=== PATIENT | female | born 1950 | race African-American/Black ===

== ENCOUNTER 2018-05-25 19:30 | Inpatient (IN) | END 2018-06-05 13:37 | DRG 562 ==

== ENCOUNTER 2019-05-21 08:32 | Inpatient (IN) | payer MEDICARE, OTHER ==
[~2019-05-21] VITALS: Ht 160 cm; Wt 105.5 kg
[2019-05-21] VITALS (23 sets, daily range): BP systolic 121–142; BP diastolic 53–107; PULSE 39–62; RESP 14–22; Ht 160 cm; Wt 105.5 kg
[~2019-05-21 08:32] MED LIST: ALBU18HF INHALATION; ARIP15TA3 PO; ASPI-817 PO; ATOR20TA38 PO; ATOR20TA65 PO; ATROPINE 1 MG/10 ML SYRINGE ONE; BENZ0.5T41 PO; CA CHLORIDE 10% 10 ML SYRINGE ONE; CHOL100062 PO; CLON0.1T14 PO; CLON0.3T PO; DILT180C72 PO; DOCU-144 PO; DOXA1TAB38 PO; DULO30CA48 PO; EPINEPHrine 0.1 MG/ML SYG ONE; ETOMIDATE 20 MG INJ ONE; FLUC100T PO; FLUT1BLS INH; FURO40TA4 PO; GABA300C16 PO; HYDR-3601 PO; HYDR-3672 PO; IBUP-1542 PO; ISOS20TA19 PO; ISOS60TA PO; Insulin Glargine SC; LANT3I SC; LISI40TA3 PO; METF100010 PO; METO-448 PO; MIRT30TA5 PO; MONT10TA24 PO; NA BICARBONATE 8.4% 50 ML SYG ONE; NIFE60TA18 PO; NIFE60TA2 PO; NOVO3I SC; OXYC30TA3 PO; PANT40TA4 PO; ROCURONIUM 50 MG INJ ONE; SEVE800T7 PO; SIMV40TA2 PO; TRAZ150T65 PO
[2019-05-21] MEDS ORDERED: CEFEPIME 2GM/50 ML (PMX) 50 ML IVPB STA (08:39)
[2019-05-21] MEDS ORDERED: SOD CHLORIDE 0.9% 1,000 ML IV STA (08:39)
[2019-05-21] MEDS ORDERED: DOPamine-D5W 1.6 MG/ML 250 ML IV STA (08:44)
[2019-05-21] MEDS ORDERED: ATROPINE 0.4 MG INJ IV ONE (09:00)
[2019-05-21] MEDS ORDERED: CA CHLORIDE 10% 10 ML SYRINGE IV ONE (09:00)
[2019-05-21] MEDS ORDERED: NA BICARBONATE 8.4% 50 ML SYG IV ONE ×2 (09:00→16:00)
[2019-05-21] MEDS ORDERED: VANCOMYCIN 1 GM (PMX) 250 ML IVPB ONE (09:00)
[2019-05-21] MEDS ORDERED: ALBUTEROL 0.5% (NEB) 2.5 MG/0.5 ML AMP INH STA (09:03)
[2019-05-21] MEDS ORDERED: SODIUM POLYSTYRENE 15 GM KIT (POWDER + SORBITOL) PO STA (09:03)
[2019-05-21] MEDS ORDERED: MIDAZOLAM 100 MG in SOD CHLORIDE 0.9% 80 ML IV STA ×2 (09:45→13:49)
[2019-05-21] MEDS ORDERED: SODIUM CHLORIDE 0.9% 1L BAG IV* STA (09:45)
[2019-05-21] MEDS ORDERED: NA POLYST SULFON 15 GM/60 ML BTL PO STA (10:35)
[2019-05-21] MEDS ORDERED: EPINEPHrine 0.1 MG/ML SYG ONE (11:38)
[2019-05-21] MEDS ORDERED: CEFEPIME 1GM/50 ML (PMX) 50 ML IVPB ONE (13:00)
[2019-05-21] MEDS ORDERED: FUROSEMIDE 40 MG INJ IV ONE (13:00)
[2019-05-21] MEDS ORDERED: VANCOMYCIN IV PER PHARMACY XX SCH (13:00)
[2019-05-21] MEDS ORDERED: GABAPENTIN 300 MG CAP PO SCH (13:00)
[2019-05-21] MEDS ORDERED: CALCIUM GLUCONATE 10% 1 GM in DEXTROSE 5% 100 ML IVPB ONE (13:00)
[2019-05-21] MEDS ORDERED: FENTAnyl 1,000 MCG in SOD CHLORIDE 0.9% 80 ML IV ONE (13:49)
[2019-05-21] MEDS ORDERED: VANCOMYCIN 1 GM in 250 ML IVPB ONE (14:00)
[2019-05-21] MEDS ORDERED: DEXTROSE 50% 50 ML SYRINGE IV PRN ×5 (14:00→19:30)
[2019-05-21] MEDS ORDERED: GLUCOSE GEL 15 GRAM TUBE PO PRN ×2 (14:00)
[2019-05-21] MEDS ORDERED: GLUCOSE GEL 15 GRAM TUBE BUCCAL PRN (14:00)
[2019-05-21] MEDS ORDERED: GLUCAGON 1 MG INJ IM PRN (14:00)
[2019-05-21] MEDS: SEVELAMER CARBONATE 0.8 GM PKT PO SCH ×2 (14:20→22:11)
[2019-05-21] MEDS ORDERED: DOPamine-D5W 1.6 MG/ML 250 ML IV SCH (16:30)
[2019-05-21] MEDS ORDERED: INSULIN ASPART [NOVOLOG] 3 ML PEN SC SCH (17:35)
[2019-05-21] MEDS ORDERED: BUMETANIDE 12 MG in DEXTROSE 5% 72 ML IV ONE (18:00)
[2019-05-21] MEDS: SODIUM BICARBONATE (IV ADD) 100 MEQ in DEXTROSE 5% 1,000 ML IV SCH (18:21)
[2019-05-21] MEDS ORDERED: CALCIUM GLUCONATE 10% 2 GM in DEXTROSE 5% 100 ML IVPB ONE (18:30)
[2019-05-21] MEDS ORDERED: INSULIN REGULAR, HUMAN 100 UNIT/1 ML 3ML VIAL IVP STA (18:45)
[2019-05-21] MEDS ORDERED: ADJUSTMENT OF INSULIN INFUSION RATE (DKA PROTOCOL) XX SCH (19:30)
[2019-05-21] MEDS: ACCU-CHEK XX SCH ×5 (19:30→23:30)
[2019-05-21] MEDS ORDERED: INSULIN REGULAR, HUMAN 100 UNIT in SOD CHLORIDE 0.9% 100 ML IV SCH ×2 (19:30)
[2019-05-21] MEDS ORDERED: INSULIN REGULAR, HUMAN 100 UNIT in SOD CHLORIDE 0.9% 99 ML IV SCH ×2 (19:30)
[2019-05-21] MEDS ORDERED: DEXTROSE 50% 25 ML IV PRN (19:30)
[2019-05-21] MEDS ORDERED: DEXTROSE 50% 50 ML IV PRN (19:30)
[2019-05-21] MEDS: INSULIN HUMAN REGULAR 100 UNIT in SOD CHLORIDE 0.9% 99 ML IV SCH (20:25)
[2019-05-21] MEDS ORDERED: LACTOBACILLUS RHAMNOSUS CAP PO SCH (21:00)
[2019-05-21] MEDS ORDERED: traZODone 50 MG TAB PO SCH (21:00)
[2019-05-21] MEDS ORDERED: ATORVASTATIN 20 MG TAB PO SCH (21:00)
[2019-05-21] MEDS ORDERED: METOPROLOL 25 MG TAB PO SCH (21:00)
[2019-05-21] MEDS: NIFEdipine (XL) 60 MG TAB PO SCH (21:00)
[2019-05-21] MEDS ORDERED: MONTELUKAST 10 MG TAB PO SCH (21:00)
[2019-05-21] MEDS ORDERED: DOCUSATE SODIUM 100 MG CAP PO SCH (21:00)
[2019-05-21] MEDS ORDERED: HEPARIN 1000 UNITS/ML 10 ML INJ CATHETER ONE ×3 (22:00→23:30)
[2019-05-22] VITALS (84 sets, daily range): BP systolic 132–163; BP diastolic 62–77; PULSE 62–92; RESP 14–22
[2019-05-22] MEDS: ACCU-CHEK XX SCH ×23 (00:30→22:30)
[2019-05-22] MEDS ORDERED: ACCU-CHEK XX SCH (02:00)
[2019-05-22] MEDS: MIDAZOLAM 100 MG in SOD CHLORIDE 0.9% 80 ML IV SCH (03:08)
[2019-05-22] MEDS: INSULIN HUMAN REGULAR 100 UNIT in SOD CHLORIDE 0.9% 99 ML IV SCH (03:09)
[2019-05-22] MEDS: SODIUM BICARBONATE (IV ADD) 100 MEQ in DEXTROSE 5% 1,000 ML IV SCH (05:11)
[2019-05-22] MEDS: PANTOPRAZOLE 40 MG INJ IV SCH (05:12)
[2019-05-22] MEDS: ISOSORBIDE MONONITRATE(SR)60 MG TAB PO SCH (09:00)
[2019-05-22] MEDS ORDERED: CHOLECALCIFEROL 1,000 UNIT TAB PO SCH (09:00)
[2019-05-22] MEDS ORDERED: BUMETANIDE 12 MG in DEXTROSE 5% 72 ML IV ONE (09:00)
[2019-05-22] MEDS: NIFEdipine (XL) 60 MG TAB PO SCH ×2 (09:00→21:11)
[2019-05-22] MEDS: SEVELAMER CARBONATE 0.8 GM PKT NGT SCH ×3 (09:25→21:10)
[2019-05-22] MEDS: LACTOBACILLUS RHAMNOSUS CAP NGT SCH ×2 (09:26→21:09)
[2019-05-22] MEDS: DOCUSATE SODIUM 10 MG/ML (10ML CUP) NGT SCH ×2 (09:26→21:10)
[2019-05-22] MEDS: METOPROLOL 25 MG TAB NGT SCH ×2 (09:26→21:11)
[2019-05-22] MEDS: CHOLECALCIFEROL 1,000 UNIT TAB NGT SCH (09:26)
[2019-05-22] MEDS: HEPARIN 5,000 UNIT/1 ML VIAL SC SCH ×2 (11:08→21:32)
[2019-05-22] MEDS ORDERED: LEVETIRACETAM 1000 MG (PMX) 100 ML IVPB ONE (12:00)
[2019-05-22] MEDS: FENTAnyl 1,000 MCG in SOD CHLORIDE 0.9% 80 ML IV SCH (13:41)
[2019-05-22] MEDS: hydrALAzine 20 MG INJ IV PRN (18:42)
[2019-05-22] MEDS: HEPARIN 1000 UNITS/ML 10 ML INJ CATHETER SCH (18:46)
[2019-05-22] MEDS: traZODone 50 MG TAB NGT SCH (21:00)
[2019-05-22] MEDS: ATORVASTATIN 20 MG TAB NGT SCH (21:10)
[2019-05-22] MEDS: MONTELUKAST 10 MG TAB NGT SCH (21:10)
[2019-05-22] MEDS: LEVETIRACETAM 500 MG (PMX) 100 ML IVPB SCH (21:10)
[2019-05-23] VITALS (53 sets, daily range): BP systolic 112–186; BP diastolic 57–101; PULSE 58–73; RESP 13–22
[2019-05-23] MEDS: ACCU-CHEK XX SCH ×11 (00:19→09:30)
[2019-05-23] MEDS ORDERED: VANCOMYCIN RANDOM XX ONE (06:00)
[2019-05-23] MEDS: PANTOPRAZOLE 40 MG INJ IV SCH (06:16)
[2019-05-23] MEDS: BUMETANIDE 1 MG INJ IV SCH ×2 (07:48→17:12)
[2019-05-23] MEDS: INSULIN HUMAN REGULAR 100 UNIT in SOD CHLORIDE 0.9% 99 ML IV SCH (08:20)
[2019-05-23] MEDS: DOCUSATE SODIUM 10 MG/ML (10ML CUP) NGT SCH ×2 (08:38→21:32)
[2019-05-23] MEDS: LACTOBACILLUS RHAMNOSUS CAP NGT SCH ×2 (08:38→21:31)
[2019-05-23] MEDS: LEVETIRACETAM 500 MG (PMX) 100 ML IVPB SCH ×2 (08:38→21:31)
[2019-05-23] MEDS: SEVELAMER CARBONATE 0.8 GM PKT NGT SCH ×3 (08:38→21:31)
[2019-05-23] MEDS: ISOSORBIDE MONONITRATE(SR)60 MG TAB PO SCH (08:39)
[2019-05-23] MEDS: CHOLECALCIFEROL 1,000 UNIT TAB NGT SCH (08:39)
[2019-05-23] MEDS: NIFEdipine (XL) 60 MG TAB PO SCH ×2 (08:40→21:31)
[2019-05-23] MEDS: HEPARIN 5,000 UNIT/1 ML VIAL SC SCH ×2 (08:41→21:41)
[2019-05-23] MEDS: METOPROLOL 25 MG TAB NGT SCH ×2 (08:43→21:32)
[2019-05-23] MEDS ORDERED: INSULIN ASPART [NOVOLOG] 3 ML PEN SC SCH (11:30)
[2019-05-23] MEDS: INSULIN ASPART [NOVOLOG] 3 ML PEN SC SCH ×3 (12:52→21:42)
[2019-05-23] MEDS: CEFEPIME 1GM/50 ML (PMX) 50 ML IVPB SCH (15:43)
[2019-05-23] MEDS ORDERED: VANCOMYCIN 1.25 GM/NS 250 ML 250 ML IVPB ONE (18:00)
[2019-05-23] MEDS: traZODone 50 MG TAB NGT SCH (21:00)
[2019-05-23] MEDS: MONTELUKAST 10 MG TAB NGT SCH (21:31)
[2019-05-23] MEDS: ATORVASTATIN 20 MG TAB NGT SCH (21:32)
[2019-05-24] VITALS (48 sets, daily range): BP systolic 92–171; BP diastolic 49–139; PULSE 58–76; RESP 12–23
[2019-05-24] MEDS: CEFEPIME 1GM/50 ML (PMX) 50 ML IVPB SCH ×3 (00:49→21:00)
[2019-05-24] MEDS: INSULIN ASPART [NOVOLOG] 3 ML PEN SC SCH ×6 (00:52→21:00)
[2019-05-24] MEDS: ACCU-CHEK XX SCH (01:00)
[2019-05-24] MEDS: BUMETANIDE 1 MG INJ IV SCH ×2 (06:00→18:00)
[2019-05-24] MEDS: LANSOPRAZOLE (SOLTAB) 30 MG TAB NGT SCH (06:00)
[2019-05-24] MEDS: INSULIN GLARGINE [LANTus] (100 UNITS/ML) SYG SC SCH (08:00)
[2019-05-24] MEDS: LEVETIRACETAM 500 MG (PMX) 100 ML IVPB SCH ×2 (09:00→21:00)
[2019-05-24] MEDS: LACTOBACILLUS RHAMNOSUS CAP NGT SCH ×2 (09:00→21:00)
[2019-05-24] MEDS: METOPROLOL 25 MG TAB NGT SCH ×2 (09:00→21:00)
[2019-05-24] MEDS: DOCUSATE SODIUM 10 MG/ML (10ML CUP) NGT SCH ×2 (09:00→21:00)
[2019-05-24] MEDS: HEPARIN 5,000 UNIT/1 ML VIAL SC SCH ×2 (09:00→21:00)
[2019-05-24] MEDS: CHOLECALCIFEROL 1,000 UNIT TAB NGT SCH (09:00)
[2019-05-24] MEDS: NIFEdipine (XL) 60 MG TAB PO SCH ×2 (09:00→21:00)
[2019-05-24] MEDS: ISOSORBIDE MONONITRATE(SR)60 MG TAB PO SCH (09:00)
[2019-05-24] MEDS: SEVELAMER CARBONATE 0.8 GM PKT NGT SCH ×3 (09:40→21:00)
[2019-05-24] MEDS: traZODone 50 MG TAB NGT SCH (21:00)
[2019-05-24] MEDS: MONTELUKAST 10 MG TAB NGT SCH (21:00)
[2019-05-24] MEDS: ATORVASTATIN 20 MG TAB NGT SCH (21:00)
[2019-05-25] VITALS (47 sets, daily range): BP systolic 108–179; BP diastolic 59–102; PULSE 55–84; RESP 12–22
[2019-05-25] MEDS: ACCU-CHEK XX SCH (01:34)
[2019-05-25] MEDS: INSULIN ASPART [NOVOLOG] 3 ML PEN SC SCH ×6 (01:34→20:27)
[2019-05-25] MEDS: FENTAnyl 1,000 MCG in SOD CHLORIDE 0.9% 80 ML IV SCH (03:37)
[2019-05-25] MEDS: LANSOPRAZOLE (SOLTAB) 30 MG TAB NGT SCH (05:25)
[2019-05-25] MEDS: BUMETANIDE 1 MG INJ IV SCH ×2 (05:25→17:52)
[2019-05-25] MEDS: DOCUSATE SODIUM 10 MG/ML (10ML CUP) NGT SCH ×2 (08:30→20:20)
[2019-05-25] MEDS: LACTOBACILLUS RHAMNOSUS CAP NGT SCH ×2 (08:30→20:21)
[2019-05-25] MEDS: SEVELAMER CARBONATE 0.8 GM PKT NGT SCH ×3 (08:30→20:21)
[2019-05-25] MEDS: LEVETIRACETAM 500 MG (PMX) 100 ML IVPB SCH ×2 (08:30→20:20)
[2019-05-25] MEDS: CEFEPIME 1GM/50 ML (PMX) 50 ML IVPB SCH (08:31)
[2019-05-25] MEDS: HEPARIN 5,000 UNIT/1 ML VIAL SC SCH ×2 (08:32→20:24)
[2019-05-25] MEDS: CHOLECALCIFEROL 1,000 UNIT TAB NGT SCH (08:33)
[2019-05-25] MEDS: NIFEdipine (XL) 60 MG TAB PO SCH ×2 (08:34→20:20)
[2019-05-25] MEDS: METOPROLOL 25 MG TAB NGT SCH ×2 (08:34→20:21)
[2019-05-25] MEDS: ISOSORBIDE MONONITRATE(SR)60 MG TAB PO SCH (08:34)
[2019-05-25] MEDS: INSULIN GLARGINE [LANTus] (100 UNITS/ML) SYG SC SCH (08:50)
[2019-05-25] MEDS ORDERED: VANCOMYCIN IV PER PHARMACY XX SCH (12:00)
[2019-05-25] MEDS ORDERED: SOD CHLORIDE 0.9% 600 ML IV ONE (13:00)
[2019-05-25] MEDS: HEPARIN 1000 UNITS/ML 10 ML INJ CATHETER SCH (13:46)
[2019-05-25] MEDS: CEFTRIAXONE 2 GM/50 ML (PMX) 50 ML IVPB SCH (14:42)
[2019-05-25] MEDS: traZODone 50 MG TAB NGT SCH (20:21)
[2019-05-25] MEDS: MONTELUKAST 10 MG TAB NGT SCH (20:21)
[2019-05-25] MEDS: ATORVASTATIN 20 MG TAB NGT SCH (20:22)
[2019-05-25] MEDS: MIDAZOLAM 100 MG in SOD CHLORIDE 0.9% 80 ML IV SCH (21:44)
[2019-05-26] VITALS (33 sets, daily range): BP systolic 113–174; BP diastolic 57–91; PULSE 59–87; RESP 14–25
[2019-05-26] MEDS: INSULIN ASPART [NOVOLOG] 3 ML PEN SC SCH ×6 (01:00→21:00)
[2019-05-26] MEDS: ACCU-CHEK XX SCH (01:06)
[2019-05-26] MEDS: FENTAnyl 1,000 MCG in SOD CHLORIDE 0.9% 80 ML IV SCH (04:20)
[2019-05-26] MEDS: LANSOPRAZOLE (SOLTAB) 30 MG TAB NGT SCH (05:07)
[2019-05-26] MEDS: BUMETANIDE 1 MG INJ IV SCH ×2 (05:07→18:13)
[2019-05-26] MEDS: hydrALAzine 20 MG INJ IV PRN (07:03)
[2019-05-26] MEDS: SEVELAMER CARBONATE 0.8 GM PKT NGT SCH ×3 (08:21→21:08)
[2019-05-26] MEDS: DOCUSATE SODIUM 10 MG/ML (10ML CUP) NGT SCH ×2 (08:21→21:05)
[2019-05-26] MEDS: LEVETIRACETAM 500 MG (PMX) 100 ML IVPB SCH ×2 (08:22→21:05)
[2019-05-26] MEDS: NIFEdipine (XL) 60 MG TAB PO SCH (08:22)
[2019-05-26] MEDS: METOPROLOL 25 MG TAB NGT SCH ×2 (08:23→21:06)
[2019-05-26] MEDS: LACTOBACILLUS RHAMNOSUS CAP NGT SCH ×2 (08:24→21:06)
[2019-05-26] MEDS: ISOSORBIDE MONONITRATE(SR)60 MG TAB PO SCH (08:24)
[2019-05-26] MEDS: CHOLECALCIFEROL 1,000 UNIT TAB NGT SCH (08:25)
[2019-05-26] MEDS: INSULIN GLARGINE [LANTus] (100 UNITS/ML) SYG SC SCH (08:26)
[2019-05-26] MEDS: HEPARIN 5,000 UNIT/1 ML VIAL SC SCH ×2 (08:27→21:13)
[2019-05-26] MEDS ORDERED: CEFEPIME 1GM/50 ML (PMX) 50 ML IVPB SCH (09:00)
[2019-05-26] MEDS ORDERED: DEXMEDETOMIDINE IN DEXTROSE 5% 50 ML IV ONE (09:19)
[2019-05-26] MEDS: DEXMEDETOMIDINE IN DEXTROSE 5% 50 ML IV SCH ×4 (09:51→22:21)
[2019-05-26] MEDS ORDERED: VANCOMYCIN 1.5 GM/NS 250 ML 250 ML IVPB SCH (12:00)
[2019-05-26] MEDS: CEFTRIAXONE 2 GM/50 ML (PMX) 50 ML IVPB SCH (15:45)
[2019-05-26] MEDS ORDERED: NIFEdipine (XL) 90 MG TAB PO SCH (21:00)
[2019-05-26] MEDS: MONTELUKAST 10 MG TAB NGT SCH (21:06)
[2019-05-26] MEDS: ATORVASTATIN 20 MG TAB NGT SCH (21:06)
[2019-05-26] MEDS: traZODone 50 MG TAB NGT SCH (21:06)
[2019-05-27] VITALS (44 sets, daily range): BP systolic 110–216; BP diastolic 55–124; PULSE 58–123; RESP 12–31
[2019-05-27] MEDS: INSULIN ASPART [NOVOLOG] 3 ML PEN SC SCH ×6 (01:00→21:30)
[2019-05-27] MEDS: ACCU-CHEK XX SCH (01:24)
[2019-05-27] MEDS: BUMETANIDE 1 MG INJ IV SCH ×2 (05:11→18:07)
[2019-05-27] MEDS: LANSOPRAZOLE (SOLTAB) 30 MG TAB NGT SCH (05:11)
[2019-05-27] MEDS: DEXMEDETOMIDINE IN DEXTROSE 5% 50 ML IV SCH (05:14)
[2019-05-27] MEDS: FENTAnyl 1,000 MCG in SOD CHLORIDE 0.9% 80 ML IV SCH (06:08)
[2019-05-27] MEDS: hydrALAzine 20 MG INJ IV PRN ×2 (07:12→23:16)
[2019-05-27] MEDS: LEVETIRACETAM 500 MG (PMX) 100 ML IVPB SCH ×2 (08:38→21:33)
[2019-05-27] MEDS: INSULIN GLARGINE [LANTus] (100 UNITS/ML) SYG SC SCH (08:39)
[2019-05-27] MEDS: ISOSORBIDE MONONITRATE(SR)60 MG TAB PO SCH (08:40)
[2019-05-27] MEDS: DOCUSATE SODIUM 10 MG/ML (10ML CUP) NGT SCH ×2 (08:40→21:31)
[2019-05-27] MEDS: HEPARIN 5,000 UNIT/1 ML VIAL SC SCH ×2 (08:40→21:29)
[2019-05-27] MEDS: SEVELAMER CARBONATE 0.8 GM PKT NGT SCH ×3 (08:41→21:31)
[2019-05-27] MEDS: LACTOBACILLUS RHAMNOSUS CAP NGT SCH ×2 (08:41→21:31)
[2019-05-27] MEDS: CHOLECALCIFEROL 1,000 UNIT TAB NGT SCH (08:41)
[2019-05-27] MEDS: METOPROLOL 25 MG TAB NGT SCH ×2 (08:41→21:32)
[2019-05-27] MEDS ORDERED: ALBUTEROL/IPRATROPIUM (NEB) 3 ML AMP HHN PRN (12:30)
[2019-05-27] MEDS ORDERED: RACEPINEPHRINE 2.25%(NEB) 0.5 ML AMP HHN PRN (12:30)
[2019-05-27] MEDS ORDERED: RACEPINEPHRINE 2.25%(NEB) 0.5 ML AMP HHN ONE (13:00)
[2019-05-27] MEDS ORDERED: FUROSEMIDE 40 MG INJ IV ONE (13:00)
[2019-05-27] MEDS: CEFTRIAXONE 2 GM/50 ML (PMX) 50 ML IVPB SCH (13:23)
[2019-05-27] MEDS: NIFEdipine 10 MG CAP NGT SCH ×2 (13:24→18:07)
[2019-05-27] MEDS: PROPOFOL 100 ML IV SCH ×2 (13:26→19:05)
[2019-05-27] MEDS ORDERED: ETOMIDATE 20 MG INJ IV ONE (13:30)
[2019-05-27] MEDS ORDERED: SUCCINYLCHOLINE CHLORIDE 100 MG/5 ML SYG IV ONE (13:30)
[2019-05-27] MEDS ORDERED: ALBUTEROL/IPRATROPIUM (NEB) 3 ML AMP HHN SCH (14:00)
[2019-05-27] MEDS: IPRATROPIUM (HFA) 12.9 GM INHALER INH SCH ×2 (14:31→20:11)
[2019-05-27] MEDS: ALBUTEROL HFA 8 GM INHALER INH SCH ×2 (14:31→20:11)
[2019-05-27] MEDS ORDERED: CEFEPIME 1GM/50 ML (PMX) 50 ML IVPB SCH (15:00)
[2019-05-27] MEDS: CEFEPIME 1GM/50 ML (PMX) 50 ML IVPB SCH (16:03)
[2019-05-27] MEDS: NPH, HUMAN INSULIN ISOPHANE 3ML VIAL SC SCH (18:05)
[2019-05-27] MEDS: METHYLPREDNISOLONE 40 MG INJ IV SCH (18:06)
[2019-05-27] MEDS: ISOSORBIDE DINITRATE 20 MG TAB NGT SCH (21:31)
[2019-05-27] MEDS: ATORVASTATIN 20 MG TAB NGT SCH (21:31)
[2019-05-27] MEDS: traZODone 50 MG TAB NGT SCH (21:32)
[2019-05-28] VITALS (44 sets, daily range): BP systolic 141–181; BP diastolic 67–97; PULSE 68–92; RESP 12–24
[2019-05-28] MEDS: METHYLPREDNISOLONE 40 MG INJ IV SCH ×4 (00:45→17:15)
[2019-05-28] MEDS: PROPOFOL 100 ML IV SCH ×4 (00:45→17:28)
[2019-05-28] MEDS: NIFEdipine 10 MG CAP NGT SCH ×4 (00:46→17:15)
[2019-05-28] MEDS: INSULIN ASPART [NOVOLOG] 3 ML PEN SC SCH ×6 (00:50→21:20)
[2019-05-28] MEDS: NPH, HUMAN INSULIN ISOPHANE 3ML VIAL SC SCH ×4 (00:50→17:26)
[2019-05-28] MEDS: ACCU-CHEK XX SCH (01:03)
[2019-05-28] MEDS: IPRATROPIUM (HFA) 12.9 GM INHALER INH SCH ×4 (01:45→19:30)
[2019-05-28] MEDS: ALBUTEROL HFA 8 GM INHALER INH SCH ×4 (01:45→19:30)
[2019-05-28] MEDS: FENTAnyl 1,000 MCG in SOD CHLORIDE 0.9% 80 ML IV SCH (05:40)
[2019-05-28] MEDS: ISOSORBIDE DINITRATE 20 MG TAB NGT SCH ×3 (05:45→21:25)
[2019-05-28] MEDS: BUMETANIDE 1 MG INJ IV SCH ×2 (05:45→17:14)
[2019-05-28] MEDS: LANSOPRAZOLE (SOLTAB) 30 MG TAB NGT SCH (05:45)
[2019-05-28] MEDS ORDERED: ISOSORBIDE MONONITRATE 20 MG TAB PO SCH (06:00)
[2019-05-28] MEDS ORDERED: METOLAZONE 5 MG TAB PO ONE (07:00)
[2019-05-28] MEDS: CHOLECALCIFEROL 1,000 UNIT TAB NGT SCH (09:01)
[2019-05-28] MEDS: LACTOBACILLUS RHAMNOSUS CAP NGT SCH ×2 (09:01→21:25)
[2019-05-28] MEDS: LEVETIRACETAM 500 MG (PMX) 100 ML IVPB SCH ×2 (09:01→21:25)
[2019-05-28] MEDS: SEVELAMER CARBONATE 0.8 GM PKT NGT SCH ×3 (09:02→21:25)
[2019-05-28] MEDS: METOPROLOL 25 MG TAB NGT SCH ×2 (09:02→21:26)
[2019-05-28] MEDS: DOCUSATE SODIUM 10 MG/ML (10ML CUP) NGT SCH ×2 (09:02→21:25)
[2019-05-28] MEDS: INSULIN GLARGINE [LANTus] (100 UNITS/ML) SYG SC SCH (09:08)
[2019-05-28] MEDS: HEPARIN 5,000 UNIT/1 ML VIAL SC SCH ×2 (10:00→21:20)
[2019-05-28] MEDS: CEFEPIME 1GM/50 ML (PMX) 50 ML IVPB SCH (14:24)
[2019-05-28] MEDS: traZODone 50 MG TAB NGT SCH (21:26)
[2019-05-28] MEDS: ATORVASTATIN 20 MG TAB NGT SCH (21:26)
[2019-05-29] VITALS (31 sets, daily range): BP systolic 139–180; BP diastolic 68–91; PULSE 58–90; RESP 12–25
[2019-05-29] MEDS: METHYLPREDNISOLONE 40 MG INJ IV SCH ×4 (00:01→17:08)
[2019-05-29] MEDS: NIFEdipine 10 MG CAP NGT SCH ×8 (00:01→23:52)
[2019-05-29] MEDS: PROPOFOL 100 ML IV SCH ×2 (00:01→04:55)
[2019-05-29] MEDS: NPH, HUMAN INSULIN ISOPHANE 3ML VIAL SC SCH ×4 (00:04→17:13)
[2019-05-29] MEDS: INSULIN ASPART [NOVOLOG] 3 ML PEN SC SCH ×6 (00:04→21:00)
[2019-05-29] MEDS: FENTAnyl 1,000 MCG in SOD CHLORIDE 0.9% 80 ML IV SCH (00:59)
[2019-05-29] MEDS: ACCU-CHEK XX SCH (01:01)
[2019-05-29] MEDS: ALBUTEROL HFA 8 GM INHALER INH SCH ×2 (01:56→08:00)
[2019-05-29] MEDS: IPRATROPIUM (HFA) 12.9 GM INHALER INH SCH ×2 (01:56→07:59)
[2019-05-29] MEDS: BUMETANIDE 1 MG INJ IV SCH ×2 (05:02→17:09)
[2019-05-29] MEDS: LANSOPRAZOLE (SOLTAB) 30 MG TAB NGT SCH (05:03)
[2019-05-29] MEDS: ISOSORBIDE DINITRATE 20 MG TAB NGT SCH ×3 (05:03→21:12)
[2019-05-29] MEDS: LACTOBACILLUS RHAMNOSUS CAP NGT SCH ×2 (08:19→21:01)
[2019-05-29] MEDS: CHOLECALCIFEROL 1,000 UNIT TAB NGT SCH (08:19)
[2019-05-29] MEDS: METOPROLOL 25 MG TAB NGT SCH ×2 (08:19→21:02)
[2019-05-29] MEDS: LEVETIRACETAM 500 MG (PMX) 100 ML IVPB SCH ×2 (08:19→21:01)
[2019-05-29] MEDS: DOCUSATE SODIUM 10 MG/ML (10ML CUP) NGT SCH ×2 (08:20→21:01)
[2019-05-29] MEDS: SEVELAMER CARBONATE 0.8 GM PKT NGT SCH ×3 (08:20→21:01)
[2019-05-29] MEDS: HEPARIN 5,000 UNIT/1 ML VIAL SC SCH ×2 (08:21→21:03)
[2019-05-29] MEDS: hydrALAzine 20 MG INJ IV PRN ×2 (08:28→14:16)
[2019-05-29] MEDS: INSULIN GLARGINE [LANTus] (100 UNITS/ML) SYG SC SCH (08:35)
[2019-05-29] MEDS ORDERED: LABETALOL HCL 20MG INJ IV PRN (11:00)
[2019-05-29] MEDS ORDERED: VANCOMYCIN 1.5 GM/NS 250 ML 250 ML IVPB ONE (12:00)
[2019-05-29] MEDS ORDERED: VANCOMYCIN 1.25 GM/NS 250 ML 250 ML IVPB ONE (12:00)
[2019-05-29] MEDS ORDERED: NIFEdipine 10 MG CAP NGT SCH (12:00)
[2019-05-29] MEDS: CEFEPIME 1GM/50 ML (PMX) 50 ML IVPB SCH (14:56)
[2019-05-29] MEDS ORDERED: DEXTROSE 5% 1,000 ML IV SCH (18:00)
[2019-05-29] MEDS: ALBUTEROL/IPRATROPIUM (NEB) 3 ML AMP HHN PRN (20:26)
[2019-05-29] MEDS: ATORVASTATIN 20 MG TAB NGT SCH (21:01)
[2019-05-29] MEDS: traZODone 50 MG TAB NGT SCH (21:01)
[2019-05-29] MEDS: DEXTROSE 5% 1,000 ML IV SCH ×2 (22:06→23:56)
[2019-05-30] VITALS (24 sets, daily range): BP systolic 130–173; BP diastolic 61–91; PULSE 64–86; RESP 14–26
[2019-05-30] MEDS: ACCU-CHEK XX SCH (01:09)
[2019-05-30] MEDS: INSULIN ASPART [NOVOLOG] 3 ML PEN SC SCH ×6 (01:09→20:32)
[2019-05-30] MEDS: ALBUTEROL/IPRATROPIUM (NEB) 3 ML AMP HHN PRN (01:19)
[2019-05-30] MEDS: LANSOPRAZOLE (SOLTAB) 30 MG TAB NGT SCH (05:34)
[2019-05-30] MEDS: BUMETANIDE 1 MG INJ IV SCH ×2 (05:34→17:07)
[2019-05-30] MEDS: ISOSORBIDE DINITRATE 20 MG TAB NGT SCH ×3 (05:34→21:56)
[2019-05-30] MEDS: NIFEdipine 10 MG CAP NGT SCH ×6 (06:24→17:06)
[2019-05-30] MEDS ORDERED: ACETAZOLAMIDE 500 MG INJ IV ONE (07:00)
[2019-05-30] MEDS: DOCUSATE SODIUM 10 MG/ML (10ML CUP) NGT SCH ×2 (08:43→20:29)
[2019-05-30] MEDS: LEVETIRACETAM 500 MG (PMX) 100 ML IVPB SCH ×2 (08:43→20:29)
[2019-05-30] MEDS: CHOLECALCIFEROL 1,000 UNIT TAB NGT SCH (08:43)
[2019-05-30] MEDS: LACTOBACILLUS RHAMNOSUS CAP NGT SCH ×2 (08:43→20:29)
[2019-05-30] MEDS: METOPROLOL 25 MG TAB NGT SCH ×2 (08:44→20:30)
[2019-05-30] MEDS: SEVELAMER CARBONATE 0.8 GM PKT NGT SCH ×3 (08:44→20:29)
[2019-05-30] MEDS: HEPARIN 5,000 UNIT/1 ML VIAL SC SCH ×2 (08:49→20:31)
[2019-05-30] MEDS: INSULIN GLARGINE [LANTus] (100 UNITS/ML) SYG SC SCH (08:50)
[2019-05-30] MEDS: METHYLPREDNISOLONE 40 MG INJ IV SCH ×2 (09:52→20:29)
[2019-05-30] MEDS: PROPOFOL 100 ML IV SCH (12:31)
[2019-05-30] MEDS: hydrALAzine 20 MG INJ IV PRN (19:07)
[2019-05-30] MEDS: traZODone 50 MG TAB NGT SCH (20:29)
[2019-05-30] MEDS: ATORVASTATIN 20 MG TAB NGT SCH (20:30)
[2019-05-31] VITALS (25 sets, daily range): BP systolic 134–181; BP diastolic 59–120; PULSE 66–89; RESP 16–28
[2019-05-31] MEDS: NIFEdipine 10 MG CAP NGT SCH ×8 (00:23→17:25)
[2019-05-31] MEDS: INSULIN ASPART [NOVOLOG] 3 ML PEN SC SCH ×6 (00:25→20:37)
[2019-05-31] MEDS: ACCU-CHEK XX SCH (00:26)
[2019-05-31] MEDS: PROPOFOL 100 ML IV SCH (01:02)
[2019-05-31] MEDS: hydrALAzine 20 MG INJ IV PRN ×2 (04:06→15:49)
[2019-05-31] MEDS: BUMETANIDE 1 MG INJ IV SCH ×2 (05:37→17:25)
[2019-05-31] MEDS: LANSOPRAZOLE (SOLTAB) 30 MG TAB NGT SCH (05:38)
[2019-05-31] MEDS: ISOSORBIDE DINITRATE 20 MG TAB NGT SCH ×3 (05:38→21:34)
[2019-05-31] MEDS: DOCUSATE SODIUM 10 MG/ML (10ML CUP) NGT SCH ×2 (09:00→20:21)
[2019-05-31] MEDS: METHYLPREDNISOLONE 40 MG INJ IV SCH (09:25)
[2019-05-31] MEDS: CHOLECALCIFEROL 1,000 UNIT TAB NGT SCH (09:26)
[2019-05-31] MEDS: METOPROLOL 25 MG TAB NGT SCH ×2 (09:26→20:21)
[2019-05-31] MEDS: SEVELAMER CARBONATE 0.8 GM PKT NGT SCH ×3 (09:28→20:20)
[2019-05-31] MEDS: LACTOBACILLUS RHAMNOSUS CAP NGT SCH ×2 (09:28→20:21)
[2019-05-31] MEDS: LEVETIRACETAM 500 MG (PMX) 100 ML IVPB SCH (09:29)
[2019-05-31] MEDS: INSULIN GLARGINE [LANTus] (100 UNITS/ML) SYG SC SCH (09:34)
[2019-05-31] MEDS: HEPARIN 5,000 UNIT/1 ML VIAL SC SCH ×2 (09:34→20:25)
[2019-05-31] MEDS ORDERED: METOLAZONE 5 MG TAB PO ONE (12:30)
[2019-05-31] MEDS ORDERED: POTASSIUM CHLORIDE 20 MEQ POWDER FOR ORAL SOLN GTB ONE (12:30)
[2019-05-31] MEDS ORDERED: METOLAZONE 2.5 MG TAB PO ONE (14:00)
[2019-05-31] MEDS: traZODone 50 MG TAB NGT SCH (20:21)
[2019-05-31] MEDS: ATORVASTATIN 20 MG TAB NGT SCH (20:21)
[2019-06-01] VITALS (35 sets, daily range): BP systolic 115–176; BP diastolic 52–151; PULSE 69–89; RESP 17–30
[2019-06-01] MEDS: NIFEdipine 10 MG CAP NGT SCH ×10 (00:17→23:49)
[2019-06-01] MEDS: INSULIN ASPART [NOVOLOG] 3 ML PEN SC SCH ×6 (01:00→20:56)
[2019-06-01] MEDS: ACCU-CHEK XX SCH (01:04)
[2019-06-01] MEDS: hydrALAzine 20 MG INJ IV PRN (03:48)
[2019-06-01] MEDS: LANSOPRAZOLE (SOLTAB) 30 MG TAB NGT SCH (05:05)
[2019-06-01] MEDS: ISOSORBIDE DINITRATE 20 MG TAB NGT SCH ×3 (05:05→22:07)
[2019-06-01] MEDS: BUMETANIDE 1 MG INJ IV SCH ×2 (05:06→17:27)
[2019-06-01] MEDS ORDERED: POTASSIUM CHLORIDE 20 MEQ POWDER FOR ORAL SOLN GTB ONE (07:30)
[2019-06-01] MEDS: DOCUSATE SODIUM 10 MG/ML (10ML CUP) NGT SCH ×2 (09:00→20:23)
[2019-06-01] MEDS ORDERED: METHYLPREDNISOLONE 40 MG INJ IV SCH (09:00)
[2019-06-01] MEDS: SEVELAMER CARBONATE 0.8 GM PKT NGT SCH ×3 (09:19→20:31)
[2019-06-01] MEDS: HEPARIN 5,000 UNIT/1 ML VIAL SC SCH ×2 (09:19→20:33)
[2019-06-01] MEDS: INSULIN GLARGINE [LANTus] (100 UNITS/ML) SYG SC SCH (09:19)
[2019-06-01] MEDS: METOPROLOL 25 MG TAB NGT SCH ×2 (09:20→20:31)
[2019-06-01] MEDS: CHOLECALCIFEROL 1,000 UNIT TAB NGT SCH (09:21)
[2019-06-01] MEDS: LACTOBACILLUS RHAMNOSUS CAP NGT SCH ×2 (09:22→20:30)
[2019-06-01] MEDS: METOLAZONE 5 MG TAB PO SCH (09:29)
[2019-06-01] MEDS: VANCOMYCIN 1.5 GM/NS 250 ML 250 ML IVPB SCH (13:25)
[2019-06-01] MEDS: ATORVASTATIN 20 MG TAB NGT SCH (20:30)
[2019-06-01] MEDS: traZODone 50 MG TAB NGT SCH (20:31)
[2019-06-02] VITALS (40 sets, daily range): BP systolic 130–201; BP diastolic 55–150; PULSE 67–99; RESP 12–33
[2019-06-02] MEDS: INSULIN ASPART [NOVOLOG] 3 ML PEN SC SCH ×6 (00:39→20:27)
[2019-06-02] MEDS: ACCU-CHEK XX SCH (01:19)
[2019-06-02] MEDS: ISOSORBIDE DINITRATE 20 MG TAB NGT SCH ×3 (05:08→21:48)
[2019-06-02] MEDS: BUMETANIDE 1 MG INJ IV SCH ×2 (05:08→18:09)
[2019-06-02] MEDS: LANSOPRAZOLE (SOLTAB) 30 MG TAB NGT SCH (05:09)
[2019-06-02] MEDS: NIFEdipine 10 MG CAP NGT SCH ×8 (05:09→23:37)
[2019-06-02] MEDS: LACTOBACILLUS RHAMNOSUS CAP NGT SCH ×2 (08:37→20:12)
[2019-06-02] MEDS: CHOLECALCIFEROL 1,000 UNIT TAB NGT SCH (08:38)
[2019-06-02] MEDS: METOPROLOL 25 MG TAB NGT SCH ×2 (08:38→20:13)
[2019-06-02] MEDS: SEVELAMER CARBONATE 0.8 GM PKT NGT SCH ×3 (08:38→20:14)
[2019-06-02] MEDS: HEPARIN 5,000 UNIT/1 ML VIAL SC SCH ×2 (08:40→20:27)
[2019-06-02] MEDS: METOLAZONE 5 MG TAB PO SCH (08:55)
[2019-06-02] MEDS: DOCUSATE SODIUM 10 MG/ML (10ML CUP) NGT SCH (09:00)
[2019-06-02] MEDS: INSULIN GLARGINE [LANTus] (100 UNITS/ML) SYG SC SCH (09:23)
[2019-06-02] MEDS: ATORVASTATIN 20 MG TAB NGT SCH (20:12)
[2019-06-02] MEDS: traZODone 50 MG TAB NGT SCH (20:13)
[2019-06-03] VITALS (12 sets, daily range): BP systolic 129–186; BP diastolic 60–88; PULSE 72–92; RESP 17–20
[2019-06-03] MEDS: INSULIN ASPART [NOVOLOG] 3 ML PEN SC SCH ×6 (00:51→20:43)
[2019-06-03] MEDS: ACCU-CHEK XX SCH (00:56)
[2019-06-03] MEDS: LANSOPRAZOLE (SOLTAB) 30 MG TAB NGT SCH (04:14)
[2019-06-03] MEDS: BUMETANIDE 1 MG INJ IV SCH ×2 (04:14→17:15)
[2019-06-03] MEDS: ISOSORBIDE DINITRATE 20 MG TAB NGT SCH ×3 (04:14→22:01)
[2019-06-03] MEDS: NIFEdipine 10 MG CAP NGT SCH ×8 (04:53→23:33)
[2019-06-03] MEDS: METOLAZONE 5 MG TAB PO SCH (08:24)
[2019-06-03] MEDS: CHOLECALCIFEROL 1,000 UNIT TAB NGT SCH (08:24)
[2019-06-03] MEDS: LACTOBACILLUS RHAMNOSUS CAP NGT SCH ×2 (08:24→20:32)
[2019-06-03] MEDS: METOPROLOL 25 MG TAB NGT SCH ×2 (08:25→20:33)
[2019-06-03] MEDS: SEVELAMER CARBONATE 0.8 GM PKT NGT SCH ×3 (08:26→20:34)
[2019-06-03] MEDS: HEPARIN 5,000 UNIT/1 ML VIAL SC SCH ×2 (08:37→20:42)
[2019-06-03] MEDS: INSULIN GLARGINE [LANTus] (100 UNITS/ML) SYG SC SCH (08:37)
[2019-06-03] MEDS: ATORVASTATIN 20 MG TAB NGT SCH (20:32)
[2019-06-04] VITALS (9 sets, daily range): BP systolic 116–188; BP diastolic 63–86; PULSE 71–105; RESP 18–20
[2019-06-04] MEDS: ACCU-CHEK XX SCH (00:41)
[2019-06-04] MEDS: INSULIN ASPART [NOVOLOG] 3 ML PEN SC SCH ×7 (00:41→23:24)
[2019-06-04] MEDS: BUMETANIDE 1 MG INJ IV SCH ×2 (05:39→17:28)
[2019-06-04] MEDS: LANSOPRAZOLE (SOLTAB) 30 MG TAB NGT SCH (06:14)
[2019-06-04] MEDS: NIFEdipine 10 MG CAP NGT SCH ×6 (06:15→17:29)
[2019-06-04] MEDS: ISOSORBIDE DINITRATE 20 MG TAB NGT SCH ×3 (06:16→22:00)
[2019-06-04] MEDS: SEVELAMER CARBONATE 0.8 GM PKT NGT SCH ×3 (08:28→20:30)
[2019-06-04] MEDS: LACTOBACILLUS RHAMNOSUS CAP NGT SCH ×2 (08:28→20:36)
[2019-06-04] MEDS: METOLAZONE 5 MG TAB PO SCH (08:29)
[2019-06-04] MEDS: CHOLECALCIFEROL 1,000 UNIT TAB NGT SCH (08:30)
[2019-06-04] MEDS: METOPROLOL 25 MG TAB NGT SCH ×2 (08:30→20:32)
[2019-06-04] MEDS: HEPARIN 5,000 UNIT/1 ML VIAL SC SCH ×2 (08:38→20:35)
[2019-06-04] MEDS: INSULIN GLARGINE [LANTus] (100 UNITS/ML) SYG SC SCH (08:39)
[2019-06-04] MEDS: VANCOMYCIN 1.5 GM/NS 250 ML 250 ML IVPB SCH (13:45)
[2019-06-04] MEDS ORDERED: HALOPERIDOL 5 MG INJ IM ONE (20:03)
[2019-06-04] MEDS: ATORVASTATIN 20 MG TAB NGT SCH (20:31)
[2019-06-05] VITALS (9 sets, daily range): BP systolic 116–163; BP diastolic 58–80; PULSE 62–84; RESP 18–20
[2019-06-05] MEDS: ACCU-CHEK XX SCH (01:48)
[2019-06-05] MEDS ORDERED: ACCU-CHEK XX SCH (02:00)
[2019-06-05] MEDS: LANSOPRAZOLE (SOLTAB) 30 MG TAB NGT SCH (05:13)
[2019-06-05] MEDS: ISOSORBIDE DINITRATE 20 MG TAB NGT SCH ×3 (05:13→21:42)
[2019-06-05] MEDS: BUMETANIDE 1 MG INJ IV SCH (05:13)
[2019-06-05] MEDS: NIFEdipine 10 MG CAP NGT SCH ×6 (05:14→13:43)
[2019-06-05] MEDS: INSULIN ASPART [NOVOLOG] 3 ML PEN SC SCH ×4 (08:24→21:00)
[2019-06-05] MEDS: LACTOBACILLUS RHAMNOSUS CAP NGT SCH ×2 (09:00→21:43)
[2019-06-05] MEDS: SEVELAMER CARBONATE 0.8 GM PKT NGT SCH ×3 (10:10→21:42)
[2019-06-05] MEDS: CHOLECALCIFEROL 1,000 UNIT TAB NGT SCH (10:10)
[2019-06-05] MEDS: METOPROLOL 25 MG TAB NGT SCH ×2 (10:11→21:43)
[2019-06-05] MEDS: METOLAZONE 5 MG TAB PO SCH (10:11)
[2019-06-05] MEDS: INSULIN GLARGINE [LANTus] (100 UNITS/ML) SYG SC SCH (10:25)
[2019-06-05] MEDS: HEPARIN 5,000 UNIT/1 ML VIAL SC SCH ×2 (10:25→21:51)
[2019-06-05] MEDS: BUMETANIDE 1 MG TAB PO SCH (18:24)
[2019-06-05] MEDS: ATORVASTATIN 20 MG TAB NGT SCH (21:42)
[2019-06-05] MEDS: NIFEdipine (XL) 60 MG TAB PO SCH (21:43)
[2019-06-06] VITALS (7 sets, daily range): BP systolic 111–176; BP diastolic 57–81; PULSE 58–81; RESP 18–20
[2019-06-06] MEDS: ACCU-CHEK XX SCH (01:24)
[2019-06-06] MEDS: hydrALAzine 20 MG INJ IV PRN (04:44)
[2019-06-06] MEDS: LANSOPRAZOLE (SOLTAB) 30 MG TAB NGT SCH (05:45)
[2019-06-06] MEDS: ISOSORBIDE DINITRATE 20 MG TAB NGT SCH ×3 (05:45→21:20)
[2019-06-06] MEDS: BUMETANIDE 1 MG TAB PO SCH ×2 (05:46→17:34)
[2019-06-06] MEDS: NIFEdipine (XL) 60 MG TAB PO SCH ×2 (08:30→21:20)
[2019-06-06] MEDS: LACTOBACILLUS RHAMNOSUS CAP NGT SCH ×2 (08:30→21:21)
[2019-06-06] MEDS: CHOLECALCIFEROL 1,000 UNIT TAB NGT SCH (08:30)
[2019-06-06] MEDS: SEVELAMER CARBONATE 0.8 GM PKT NGT SCH ×3 (08:30→21:19)
[2019-06-06] MEDS: METOLAZONE 5 MG TAB PO SCH (08:30)
[2019-06-06] MEDS: METOPROLOL 25 MG TAB NGT SCH ×2 (08:31→21:20)
[2019-06-06] MEDS: HEPARIN 5,000 UNIT/1 ML VIAL SC SCH ×2 (08:39→21:30)
[2019-06-06] MEDS: INSULIN ASPART [NOVOLOG] 3 ML PEN SC SCH ×4 (08:39→21:00)
[2019-06-06] MEDS: INSULIN GLARGINE [LANTus] (100 UNITS/ML) SYG SC SCH (08:39)
[2019-06-06] MEDS: ATORVASTATIN 20 MG TAB NGT SCH (21:20)
[2019-06-07] MEDS: ACCU-CHEK XX SCH (02:00)
[2019-06-07 04:00] VITALS: BP 157/68; PULSE 74; RESP 20
[2019-06-07] MEDS: BUMETANIDE 1 MG TAB PO SCH ×2 (05:52→17:12)
[2019-06-07] MEDS: ISOSORBIDE DINITRATE 20 MG TAB NGT SCH ×3 (05:52→23:19)
[2019-06-07] MEDS: LANSOPRAZOLE (SOLTAB) 30 MG TAB NGT SCH (05:52)
[2019-06-07] MEDS: SEVELAMER CARBONATE 0.8 GM PKT NGT SCH ×3 (08:37→21:45)
[2019-06-07] MEDS: METOPROLOL 25 MG TAB NGT SCH ×2 (08:39→21:50)
[2019-06-07] MEDS: CHOLECALCIFEROL 1,000 UNIT TAB NGT SCH (08:40)
[2019-06-07] MEDS: METOLAZONE 5 MG TAB PO SCH (08:40)
[2019-06-07] MEDS: NIFEdipine (XL) 60 MG TAB PO SCH ×2 (08:40→21:48)
[2019-06-07] MEDS: LACTOBACILLUS RHAMNOSUS CAP NGT SCH ×2 (08:40→21:46)
[2019-06-07] MEDS: INSULIN GLARGINE [LANTus] (100 UNITS/ML) SYG SC SCH (08:47)
[2019-06-07] MEDS: HEPARIN 5,000 UNIT/1 ML VIAL SC SCH ×2 (08:47→21:48)
[2019-06-07] MEDS: INSULIN ASPART [NOVOLOG] 3 ML PEN SC SCH ×4 (08:48→21:00)
[2019-06-07 09:00] VITALS: BP 149/72; PULSE 74; RESP 18
[2019-06-07] MEDS: ARIPIPRAZOLE 5 MG TAB PO SCH (10:37)
[2019-06-07] MEDS: DULOXETINE 30 MG CAP DR PO SCH (10:38)
[2019-06-07] MEDS: GABAPENTIN 300 MG CAP PO SCH ×4 (10:38→21:46)
[2019-06-07 11:35] VITALS: BP 131/72; PULSE 70; RESP 20
[2019-06-07 12:27] VITALS: BP 128/65; PULSE 60; RESP 14
[2019-06-07 19:56] VITALS: BP 134/60; PULSE 66; RESP 20
[2019-06-07] MEDS: ATORVASTATIN 20 MG TAB NGT SCH (21:46)
[2019-06-07] MEDS: MIRTAZAPINE 15 MG TAB PO SCH (21:46)
[2019-06-07] MEDS ORDERED: ACETAMINOPHEN 325 MG TAB PO PRN (23:00)
[2019-06-08 01:55] VITALS: BP 133/71; PULSE 70; RESP 18
[2019-06-08] MEDS: ACCU-CHEK XX SCH (02:00)
[2019-06-08] MEDS: LANSOPRAZOLE (SOLTAB) 30 MG TAB NGT SCH (06:09)
[2019-06-08] MEDS: BUMETANIDE 1 MG TAB PO SCH (06:09)
[2019-06-08] MEDS: ISOSORBIDE DINITRATE 20 MG TAB NGT SCH ×4 (06:12→22:07)
[2019-06-08 07:15] VITALS: BP 139/71; PULSE 67; RESP 18
[2019-06-08] MEDS: INSULIN ASPART [NOVOLOG] 3 ML PEN SC SCH ×4 (07:35→20:18)
[2019-06-08 08:00] VITALS: BP 142/76; PULSE 86; RESP 20
[2019-06-08] MEDS: GABAPENTIN 300 MG CAP PO SCH ×5 (08:54→20:10)
[2019-06-08] MEDS: NIFEdipine (XL) 60 MG TAB PO SCH ×2 (08:54→20:10)
[2019-06-08] MEDS: ARIPIPRAZOLE 5 MG TAB PO SCH (08:54)
[2019-06-08] MEDS: DULOXETINE 30 MG CAP DR PO SCH (08:56)
[2019-06-08] MEDS: SEVELAMER CARBONATE 0.8 GM PKT NGT SCH ×3 (08:56→20:11)
[2019-06-08] MEDS: METOPROLOL 25 MG TAB NGT SCH ×2 (08:56→20:11)
[2019-06-08] MEDS: CHOLECALCIFEROL 1,000 UNIT TAB NGT SCH (08:56)
[2019-06-08] MEDS: LACTOBACILLUS RHAMNOSUS CAP NGT SCH ×2 (08:56→20:10)
[2019-06-08] MEDS: HEPARIN 5,000 UNIT/1 ML VIAL SC SCH ×2 (08:57→20:15)
[2019-06-08] MEDS: INSULIN GLARGINE [LANTus] (100 UNITS/ML) SYG SC SCH (10:24)
[2019-06-08] MEDS ORDERED: INSULIN GLARGINE [LANTus] (100 UNITS/ML) SYG SC ONE (11:30)
[2019-06-08 14:00] VITALS: BP 148/63; PULSE 84; RESP 20
[2019-06-08 20:00] VITALS: BP 149/70; PULSE 64; RESP 18
[2019-06-08] MEDS: MIRTAZAPINE 15 MG TAB PO SCH (20:10)
[2019-06-08] MEDS: ATORVASTATIN 20 MG TAB NGT SCH (20:10)
[2019-06-08 22:00] VITALS: BP 168/59; PULSE 66; RESP 20
[2019-06-09 01:45] VITALS: BP 140/63; PULSE 62; RESP 19
[2019-06-09] MEDS: ACCU-CHEK XX SCH (02:00)
[2019-06-09] MEDS: LANSOPRAZOLE (SOLTAB) 30 MG TAB PO SCH (05:27)
[2019-06-09 05:30] VITALS: BP 102/64; PULSE 71
[2019-06-09] MEDS: ISOSORBIDE DINITRATE 20 MG TAB PO SCH ×3 (05:33→20:54)
[2019-06-09 08:12] VITALS: BP 161/62; PULSE 62; RESP 17
[2019-06-09] MEDS: INSULIN ASPART [NOVOLOG] 3 ML PEN SC SCH ×4 (08:43→20:42)
[2019-06-09] MEDS: INSULIN GLARGINE [LANTus] (100 UNITS/ML) SYG SC SCH (08:47)
[2019-06-09] MEDS: SEVELAMER CARBONATE 0.8 GM PKT PO SCH ×4 (08:49→21:50)
[2019-06-09] MEDS: HEPARIN 5,000 UNIT/1 ML VIAL SC SCH ×2 (08:49→20:41)
[2019-06-09] MEDS: DULOXETINE 30 MG CAP DR PO SCH (08:51)
[2019-06-09] MEDS: ARIPIPRAZOLE 5 MG TAB PO SCH (08:51)
[2019-06-09] MEDS: LACTOBACILLUS RHAMNOSUS CAP NGT SCH ×2 (08:53→20:53)
[2019-06-09] MEDS: NIFEdipine (XL) 60 MG TAB PO SCH ×2 (08:53→20:53)
[2019-06-09] MEDS: CHOLECALCIFEROL 1,000 UNIT TAB NGT SCH (08:53)
[2019-06-09] MEDS: GABAPENTIN 300 MG CAP PO SCH ×4 (08:53→20:53)
[2019-06-09] MEDS ORDERED: BUMETANIDE 1 MG INJ IV ONE (09:00)
[2019-06-09] MEDS ORDERED: BUMETANIDE 1 MG TAB PO SCH (09:00)
[2019-06-09 14:52] VITALS: BP 136/73; PULSE 74; RESP 20
[2019-06-09 20:00] VITALS: BP 132/66; PULSE 80; RESP 19
[2019-06-09] MEDS: MIRTAZAPINE 15 MG TAB PO SCH (20:52)
[2019-06-09] MEDS: METOPROLOL 25 MG TAB PO SCH (20:52)
[2019-06-09] MEDS: ATORVASTATIN 20 MG TAB PO SCH (20:53)
[2019-06-10 02:00] VITALS: BP 132/78; PULSE 68; RESP 18
[2019-06-10] MEDS: ACCU-CHEK XX SCH ×2 (02:00→20:14)
[2019-06-10 06:00] VITALS: BP 149/74; PULSE 67; RESP 18
[2019-06-10] MEDS: ISOSORBIDE DINITRATE 20 MG TAB PO SCH ×3 (06:14→22:23)
[2019-06-10] MEDS: LANSOPRAZOLE (SOLTAB) 30 MG TAB PO SCH (06:14)
[2019-06-10 08:00] VITALS: BP 126/71; PULSE 71; RESP 18
[2019-06-10] MEDS: DULOXETINE 30 MG CAP DR PO SCH (08:53)
[2019-06-10] MEDS: LACTOBACILLUS RHAMNOSUS CAP NGT SCH ×2 (08:53→20:17)
[2019-06-10] MEDS: CHOLECALCIFEROL 1,000 UNIT TAB NGT SCH (08:54)
[2019-06-10] MEDS: METOPROLOL 25 MG TAB PO SCH ×2 (08:54→20:18)
[2019-06-10] MEDS: ARIPIPRAZOLE 5 MG TAB PO SCH (08:54)
[2019-06-10] MEDS: BUMETANIDE 1 MG TAB PO SCH (08:54)
[2019-06-10] MEDS: SEVELAMER CARBONATE 0.8 GM PKT PO SCH ×4 (08:55→20:18)
[2019-06-10] MEDS: NIFEdipine (XL) 60 MG TAB PO SCH ×2 (08:55→20:17)
[2019-06-10] MEDS: GABAPENTIN 300 MG CAP PO SCH ×4 (08:55→20:17)
[2019-06-10] MEDS: INSULIN ASPART [NOVOLOG] 3 ML PEN SC SCH ×4 (08:57→20:13)
[2019-06-10] MEDS: HEPARIN 5,000 UNIT/1 ML VIAL SC SCH (08:58)
[2019-06-10] MEDS: INSULIN GLARGINE [LANTus] (100 UNITS/ML) SYG SC SCH (08:58)
[2019-06-10 12:51] VITALS: BP 110/64; PULSE 63; RESP 18
[2019-06-10 14:00] VITALS: BP 121/53; PULSE 58; RESP 18
[2019-06-10 19:54] VITALS: BP 146/67; PULSE 67; RESP 17
[2019-06-10] MEDS: ATORVASTATIN 20 MG TAB PO SCH (20:16)
[2019-06-10] MEDS: MIRTAZAPINE 15 MG TAB PO SCH (20:39)
[2019-06-11 01:21] VITALS: BP 131/66; PULSE 60; RESP 18
[2019-06-11] MEDS: LANSOPRAZOLE (SOLTAB) 30 MG TAB PO SCH (05:22)
[2019-06-11] MEDS: ISOSORBIDE DINITRATE 20 MG TAB PO SCH ×3 (05:23→21:08)
[2019-06-11 08:02] VITALS: BP 124/65; PULSE 66; RESP 18
[2019-06-11] MEDS: SEVELAMER CARBONATE 0.8 GM PKT PO SCH ×3 (09:15→21:10)
[2019-06-11] MEDS: GABAPENTIN 300 MG CAP PO SCH ×4 (09:16→21:09)
[2019-06-11] MEDS: BUMETANIDE 1 MG TAB PO SCH (09:16)
[2019-06-11] MEDS: ARIPIPRAZOLE 5 MG TAB PO SCH (09:18)
[2019-06-11] MEDS: NIFEdipine (XL) 60 MG TAB PO SCH ×2 (09:19→21:10)
[2019-06-11] MEDS: LACTOBACILLUS RHAMNOSUS CAP NGT SCH ×2 (09:19→21:08)
[2019-06-11] MEDS: METOPROLOL 25 MG TAB PO SCH ×2 (09:19→21:09)
[2019-06-11] MEDS: hydrALAzine 20 MG INJ IV PRN (09:20)
[2019-06-11] MEDS: DULOXETINE 30 MG CAP DR PO SCH (09:20)
[2019-06-11] MEDS: CHOLECALCIFEROL 1,000 UNIT TAB NGT SCH (09:20)
[2019-06-11] MEDS: INSULIN GLARGINE [LANTus] (100 UNITS/ML) SYG SC SCH (09:22)
[2019-06-11] MEDS: INSULIN ASPART [NOVOLOG] 3 ML PEN SC SCH ×4 (09:22→21:00)
[2019-06-11] MEDS: ENOXAPARIN 30 MG/0.3 ML SYG SC SCH (09:23)
[2019-06-11 13:51] VITALS: BP 128/64; PULSE 59; RESP 18
[2019-06-11 19:48] VITALS: BP 129/68; PULSE 72; RESP 18
[2019-06-11] MEDS: MIRTAZAPINE 15 MG TAB PO SCH (21:08)
[2019-06-11] MEDS: ATORVASTATIN 20 MG TAB PO SCH (21:10)
[2019-06-12 01:53] VITALS: BP 120/72; PULSE 67; RESP 18
[2019-06-12] MEDS: ISOSORBIDE DINITRATE 20 MG TAB PO SCH ×4 (06:00→21:01)
[2019-06-12] MEDS: LANSOPRAZOLE (SOLTAB) 30 MG TAB PO SCH ×2 (06:00→06:22)
[2019-06-12 08:01] VITALS: BP 172/68; PULSE 61; RESP 18
[2019-06-12] MEDS: INSULIN GLARGINE [LANTus] (100 UNITS/ML) SYG SC SCH (10:45)
[2019-06-12] MEDS: INSULIN ASPART [NOVOLOG] 3 ML PEN SC SCH ×4 (10:46→21:00)
[2019-06-12] MEDS: ENOXAPARIN 30 MG/0.3 ML SYG SC SCH (10:47)
[2019-06-12] MEDS: ARIPIPRAZOLE 5 MG TAB PO SCH (10:48)
[2019-06-12] MEDS: METOPROLOL 25 MG TAB PO SCH ×2 (10:48→20:59)
[2019-06-12] MEDS: NIFEdipine (XL) 60 MG TAB PO SCH ×2 (10:49→20:59)
[2019-06-12] MEDS: DULOXETINE 30 MG CAP DR PO SCH (10:49)
[2019-06-12] MEDS: CHOLECALCIFEROL 1,000 UNIT TAB NGT SCH (10:49)
[2019-06-12] MEDS: LACTOBACILLUS RHAMNOSUS CAP NGT SCH ×2 (10:49→20:59)
[2019-06-12] MEDS: SEVELAMER CARBONATE 0.8 GM PKT PO SCH ×3 (10:50→20:58)
[2019-06-12] MEDS: GABAPENTIN 300 MG CAP PO SCH ×4 (10:50→20:59)
[2019-06-12 14:00] VITALS: BP 134/63; PULSE 60; RESP 17
[2019-06-12 20:22] VITALS: BP 128/55; PULSE 65; RESP 18
[2019-06-12] MEDS: MIRTAZAPINE 15 MG TAB PO SCH (20:58)
[2019-06-12] MEDS: ATORVASTATIN 20 MG TAB PO SCH (21:01)
[2019-06-13 01:49] VITALS: BP 140/72; PULSE 63; RESP 18
[2019-06-13] MEDS: ISOSORBIDE DINITRATE 20 MG TAB PO SCH ×3 (05:44→21:35)
[2019-06-13] MEDS: LANSOPRAZOLE (SOLTAB) 30 MG TAB PO SCH (05:44)
[2019-06-13 08:17] VITALS: BP 145/72; PULSE 63; RESP 17
[2019-06-13] MEDS: INSULIN GLARGINE [LANTus] (100 UNITS/ML) SYG SC SCH (09:53)
[2019-06-13] MEDS: INSULIN ASPART [NOVOLOG] 3 ML PEN SC SCH ×4 (09:54→21:39)
[2019-06-13] MEDS: ENOXAPARIN 30 MG/0.3 ML SYG SC SCH (09:55)
[2019-06-13] MEDS: SEVELAMER CARBONATE 0.8 GM PKT PO SCH ×3 (09:55→21:36)
[2019-06-13] MEDS: ARIPIPRAZOLE 5 MG TAB PO SCH (09:56)
[2019-06-13] MEDS: DULOXETINE 30 MG CAP DR PO SCH (09:56)
[2019-06-13] MEDS: CHOLECALCIFEROL 1,000 UNIT TAB NGT SCH (09:56)
[2019-06-13] MEDS: LACTOBACILLUS RHAMNOSUS CAP NGT SCH ×2 (09:56→21:35)
[2019-06-13] MEDS: GABAPENTIN 300 MG CAP PO SCH ×4 (09:56→21:35)
[2019-06-13] MEDS: METOPROLOL 25 MG TAB PO SCH ×2 (09:59→21:36)
[2019-06-13] MEDS: NIFEdipine (XL) 60 MG TAB PO SCH ×2 (09:59→21:35)
[2019-06-13 14:41] VITALS: BP 151/69; PULSE 69; RESP 17
[2019-06-13 20:00] VITALS: BP 125/63; PULSE 66; RESP 18
[2019-06-13] MEDS: MIRTAZAPINE 15 MG TAB PO SCH (21:35)
[2019-06-13] MEDS: ATORVASTATIN 20 MG TAB PO SCH (21:35)
[2019-06-14 02:00] VITALS: BP 148/70; PULSE 65; RESP 18
[2019-06-14 05:20] VITALS: BP 143/67; PULSE 71
[2019-06-14] MEDS: LANSOPRAZOLE (SOLTAB) 30 MG TAB PO SCH (05:22)
[2019-06-14] MEDS: ISOSORBIDE DINITRATE 20 MG TAB PO SCH ×3 (05:22→21:53)
[2019-06-14 07:45] VITALS: BP 149/70; PULSE 64; RESP 18
[2019-06-14] MEDS: SEVELAMER CARBONATE 0.8 GM PKT PO SCH ×3 (08:11→21:53)
[2019-06-14] MEDS: NIFEdipine (XL) 60 MG TAB PO SCH ×2 (08:11→21:53)
[2019-06-14] MEDS: DULOXETINE 30 MG CAP DR PO SCH (08:11)
[2019-06-14] MEDS: LACTOBACILLUS RHAMNOSUS CAP NGT SCH ×2 (08:11→21:50)
[2019-06-14] MEDS: GABAPENTIN 300 MG CAP PO SCH ×4 (08:11→21:53)
[2019-06-14] MEDS: CHOLECALCIFEROL 1,000 UNIT TAB NGT SCH (08:12)
[2019-06-14] MEDS: METOPROLOL 25 MG TAB PO SCH ×2 (08:12→21:52)
[2019-06-14] MEDS: ARIPIPRAZOLE 5 MG TAB PO SCH (08:13)
[2019-06-14] MEDS: INSULIN GLARGINE [LANTus] (100 UNITS/ML) SYG SC SCH (08:15)
[2019-06-14] MEDS: INSULIN ASPART [NOVOLOG] 3 ML PEN SC SCH ×4 (08:15→22:03)
[2019-06-14] MEDS: ENOXAPARIN 30 MG/0.3 ML SYG SC SCH (08:16)
[2019-06-14 14:23] VITALS: BP 135/62; PULSE 63; RESP 18
[2019-06-14 19:18] VITALS: BP 141/67; PULSE 78; RESP 18
[2019-06-14] MEDS: DOXAZOSIN 1 MG TAB PO SCH (21:52)
[2019-06-14] MEDS: ATORVASTATIN 20 MG TAB PO SCH (21:53)
[2019-06-14] MEDS: MIRTAZAPINE 15 MG TAB PO SCH (21:58)
[2019-06-15 02:00] VITALS: BP 145/68; PULSE 69; RESP 17
[2019-06-15] MEDS: LANSOPRAZOLE (SOLTAB) 30 MG TAB PO SCH (06:23)
[2019-06-15] MEDS: ISOSORBIDE DINITRATE 20 MG TAB PO SCH ×3 (06:23→22:12)
[2019-06-15 08:00] VITALS: BP 159/73; PULSE 68; RESP 20
[2019-06-15] MEDS: HEPARIN 5,000 UNIT/1 ML VIAL SC SCH ×2 (08:46→20:59)
[2019-06-15] MEDS: INSULIN ASPART [NOVOLOG] 3 ML PEN SC SCH ×4 (08:47→20:58)
[2019-06-15] MEDS: INSULIN GLARGINE [LANTus] (100 UNITS/ML) SYG SC SCH (08:48)
[2019-06-15] MEDS: SEVELAMER CARBONATE 0.8 GM PKT PO SCH ×3 (08:49→21:00)
[2019-06-15] MEDS: ARIPIPRAZOLE 5 MG TAB PO SCH (08:49)
[2019-06-15] MEDS: CHOLECALCIFEROL 1,000 UNIT TAB NGT SCH (08:49)
[2019-06-15] MEDS: LACTOBACILLUS RHAMNOSUS CAP NGT SCH ×2 (08:50→21:02)
[2019-06-15] MEDS: DULOXETINE 30 MG CAP DR PO SCH (08:50)
[2019-06-15] MEDS: METOPROLOL 25 MG TAB PO SCH ×2 (08:50→21:01)
[2019-06-15] MEDS: GABAPENTIN 300 MG CAP PO SCH ×4 (08:50→21:03)
[2019-06-15] MEDS: NIFEdipine (XL) 60 MG TAB PO SCH ×2 (08:51→21:03)
[2019-06-15 14:00] VITALS: BP 118/57; PULSE 65; RESP 18
[2019-06-15] MEDS ORDERED: BISACODYL (EC) 5 MG TAB PO PRN (17:00)
[2019-06-15 19:47] VITALS: BP 145/65; PULSE 72; RESP 18
[2019-06-15] MEDS: DOXAZOSIN 1 MG TAB PO SCH (21:00)
[2019-06-15] MEDS: MIRTAZAPINE 15 MG TAB PO SCH (21:02)
[2019-06-15] MEDS: ATORVASTATIN 20 MG TAB PO SCH (21:02)
[2019-06-16 01:44] VITALS: BP 117/56; PULSE 72; RESP 18
[2019-06-16] MEDS: LANSOPRAZOLE (SOLTAB) 30 MG TAB PO SCH (05:10)
[2019-06-16] MEDS: ISOSORBIDE DINITRATE 20 MG TAB PO SCH ×3 (05:11→23:04)
[2019-06-16 08:13] VITALS: BP 149/76; PULSE 69; RESP 17
[2019-06-16] MEDS: INSULIN ASPART [NOVOLOG] 3 ML PEN SC SCH ×4 (08:57→21:24)
[2019-06-16] MEDS: LACTOBACILLUS RHAMNOSUS CAP NGT SCH ×2 (08:58→21:13)
[2019-06-16] MEDS: DULOXETINE 30 MG CAP DR PO SCH (08:58)
[2019-06-16] MEDS: INSULIN GLARGINE [LANTus] (100 UNITS/ML) SYG SC SCH (08:58)
[2019-06-16] MEDS: SEVELAMER CARBONATE 0.8 GM PKT PO SCH ×4 (08:58→21:10)
[2019-06-16] MEDS: NIFEdipine (XL) 60 MG TAB PO SCH ×2 (08:59→21:14)
[2019-06-16] MEDS: CHOLECALCIFEROL 1,000 UNIT TAB NGT SCH (09:00)
[2019-06-16] MEDS: METOPROLOL 25 MG TAB PO SCH ×2 (09:00→21:13)
[2019-06-16] MEDS: GABAPENTIN 300 MG CAP PO SCH ×4 (09:00→21:12)
[2019-06-16] MEDS: ARIPIPRAZOLE 5 MG TAB PO SCH (09:00)
[2019-06-16] MEDS: HEPARIN 5,000 UNIT/1 ML VIAL SC SCH ×2 (09:07→21:23)
[2019-06-16 14:51] VITALS: BP 116/58; PULSE 70; RESP 17
[2019-06-16 20:00] VITALS: BP 138/71; PULSE 69; RESP 18
[2019-06-16] MEDS: MIRTAZAPINE 15 MG TAB PO SCH (21:12)
[2019-06-16] MEDS: DOXAZOSIN 1 MG TAB PO SCH (21:13)
[2019-06-16] MEDS: ATORVASTATIN 20 MG TAB PO SCH (21:14)
[2019-06-17 02:00] VITALS: BP 130/69; PULSE 66; RESP 18
[2019-06-17] MEDS: LANSOPRAZOLE (SOLTAB) 30 MG TAB PO SCH (05:13)
[2019-06-17] MEDS: ISOSORBIDE DINITRATE 20 MG TAB PO SCH ×3 (05:20→23:07)
[2019-06-17 07:55] VITALS: BP 132/60; PULSE 74; RESP 19
[2019-06-17] MEDS: INSULIN ASPART [NOVOLOG] 3 ML PEN SC SCH ×4 (08:21→20:34)
[2019-06-17] MEDS: HEPARIN 5,000 UNIT/1 ML VIAL SC SCH ×2 (08:22→20:33)
[2019-06-17] MEDS: INSULIN GLARGINE [LANTus] (100 UNITS/ML) SYG SC SCH (08:22)
[2019-06-17] MEDS: CHOLECALCIFEROL 1,000 UNIT TAB NGT SCH (08:23)
[2019-06-17] MEDS: GABAPENTIN 300 MG CAP PO SCH ×4 (08:23→20:31)
[2019-06-17] MEDS: DULOXETINE 30 MG CAP DR PO SCH (08:23)
[2019-06-17] MEDS: ARIPIPRAZOLE 5 MG TAB PO SCH (08:23)
[2019-06-17] MEDS: LACTOBACILLUS RHAMNOSUS CAP NGT SCH ×2 (08:23→20:31)
[2019-06-17] MEDS: METOPROLOL 25 MG TAB PO SCH ×2 (08:26→20:31)
[2019-06-17] MEDS: NIFEdipine (XL) 60 MG TAB PO SCH ×2 (08:26→20:32)
[2019-06-17] MEDS: SEVELAMER CARBONATE 0.8 GM PKT PO SCH ×3 (08:26→20:38)
[2019-06-17 14:22] VITALS: BP 131/63; PULSE 69; RESP 19
[2019-06-17 19:12] VITALS: BP 106/53; PULSE 97; RESP 18
[2019-06-17 19:51] VITALS: BP 134/60; PULSE 75; RESP 18
[2019-06-17] MEDS: ATORVASTATIN 20 MG TAB PO SCH (20:31)
[2019-06-17] MEDS: DOXAZOSIN 1 MG TAB PO SCH (20:32)
[2019-06-17] MEDS: MIRTAZAPINE 15 MG TAB PO SCH (20:32)
[2019-06-17] MEDS ORDERED: NA POLYST SULFON 15 GM/60 ML BTL PO ONE (22:00)
[2019-06-18 02:36] VITALS: BP 129/62; PULSE 76; RESP 18
[2019-06-18] MEDS: LANSOPRAZOLE (SOLTAB) 30 MG TAB PO SCH (05:58)
[2019-06-18] MEDS: ISOSORBIDE DINITRATE 20 MG TAB PO SCH ×2 (05:58→13:03)
[2019-06-18 08:00] VITALS: BP 130/63; PULSE 77; RESP 20
[2019-06-18] MEDS: GABAPENTIN 300 MG CAP PO SCH ×3 (08:42→17:11)
[2019-06-18] MEDS: CHOLECALCIFEROL 1,000 UNIT TAB NGT SCH (08:42)
[2019-06-18] MEDS: LACTOBACILLUS RHAMNOSUS CAP NGT SCH (08:42)
[2019-06-18] MEDS: DULOXETINE 30 MG CAP DR PO SCH (08:42)
[2019-06-18] MEDS: SEVELAMER CARBONATE 0.8 GM PKT PO SCH ×3 (08:42→12:26)
[2019-06-18] MEDS: NIFEdipine (XL) 60 MG TAB PO SCH (08:43)
[2019-06-18] MEDS: ARIPIPRAZOLE 5 MG TAB PO SCH (08:43)
[2019-06-18] MEDS: METOPROLOL 25 MG TAB PO SCH (08:44)
[2019-06-18] MEDS: INSULIN ASPART [NOVOLOG] 3 ML PEN SC SCH ×3 (08:48→17:12)
[2019-06-18] MEDS: INSULIN GLARGINE [LANTus] (100 UNITS/ML) SYG SC SCH (08:48)
[2019-06-18] MEDS: HEPARIN 5,000 UNIT/1 ML VIAL SC SCH (08:49)
[2019-06-18 14:00] VITALS: BP 123/54; PULSE 79; RESP 18
== END 2019-06-18 19:45 | DRG 870 ==
LOC: E/R 08:32 → ICU 10:35 → EDBEDREQSVC 10:40 → TEL 06-02 22:45 → MS3 06-07 12:03
PROVIDERS: ADMIT Family Medicine; ATTEND Internal Medicine
PROC: 06HY33Z Insertion of Infusion Device into Lower Vein, Percutaneous Approach (ICD-10-PCS; principal; 2019-05-21)
PROC: 5A1955Z Respiratory Ventilation, Greater than 96 Consecutive Hours (ICD-10-PCS; 2019-05-21)
PROC: 0BH18EZ Insertion of Endotracheal Airway into Trachea, Via Natural or Artificial Opening Endoscopic (ICD-10-PCS; 2019-05-21)
PROC: 06HY33Z Insertion of Infusion Device into Lower Vein, Percutaneous Approach (ICD-10-PCS; 2019-05-21)
PROC: 5A1D70Z Performance of Urinary Filtration, Intermittent, Less than 6 Hours Per Day (ICD-10-PCS; 2019-05-21)
PROC: 5A12012 Performance of Cardiac Output, Single, Manual (ICD-10-PCS; 2019-05-21)
PROC: 0BH18EZ Insertion of Endotracheal Airway into Trachea, Via Natural or Artificial Opening Endoscopic (ICD-10-PCS; 2019-05-27)
DX: A41.9 Sepsis, unspecified organism (principal); J96.01 Acute respiratory failure with hypoxia; I50.33 Acute on chronic diastolic (congestive) heart failure; G93.41 Metabolic encephalopathy; J15.212 Pneumonia due to Methicillin resistant Staphylococcus aureus; R65.21 Severe sepsis with septic shock; N17.9 Acute kidney failure, unspecified; E87.2 Acidosis; I13.0 Hypertensive heart and chronic kidney disease with heart failure and stage 1 through stage 4 chronic kidney disease, or unspecified chronic kidney disease; N18.4 Chronic kidney disease, stage 4 (severe); E87.1 Hypo-osmolality and hyponatremia; Z68.41 Body mass index [BMI] 40.0-44.9, adult; E11.65 Type 2 diabetes mellitus with hyperglycemia; E66.01 Morbid (severe) obesity due to excess calories; E87.5 Hyperkalemia; G47.33 Obstructive sleep apnea (adult) (pediatric); E88.81 Metabolic syndrome and other insulin resistance; E11.22 Type 2 diabetes mellitus with diabetic chronic kidney disease; F32.9 Major depressive disorder, single episode, unspecified; J44.9 Chronic obstructive pulmonary disease, unspecified; R13.10 Dysphagia, unspecified; R53.81 Other malaise; B18.2 Chronic viral hepatitis C; E78.5 Hyperlipidemia, unspecified; Z87.891 Personal history of nicotine dependence; Z79.84 Long term (current) use of oral hypoglycemic drugs
CPT/HCPCS: 31500; 36415; 36600; 70450; 70551; 71045; 72125; 72170; 74018; 74176; 74230; 76942; 80048; 80053; 80076; 80202; 80307; 81001; 81003; 82043; 82140; 82550; 82553; 82607; 82746; 82803; 82962; 83036; 83605; 83690; 83735; 83880; 84100; 84145; 84155; 84300; 84484; 85025; 85610; 85730; 86592; 86850; 86900; 86901; 87070; 87081; 87086; 90935; 92526; 92610; 92611; 92950; 93005; 93308; 94002; 94003; 94640; 94664; 94770; 95819; 96374; 96375; 97110; 97116; 97162; 97530; C9113; J0171; J0360; J0461; J0610; J0692; J0696; J1120; J1265; J1630; J1644; J1650; J1815; J1940; J1953; J2250; J2920; J3010; J3370; J3490; J7030; J7070